=== PATIENT | female | born 2000 | race Caucasian/White ===

== ENCOUNTER 2021-09-18 05:51 | Emergency (ER) | payer SELFPAY ==
[~2021-09-18] VITALS: Ht 172.7 cm; Wt 68.1 kg
[2021-09-18 06:10] VITALS: BP 136/74
[2021-09-18] MEDS ORDERED: SODIUM CHLORIDE 0.9% 1,000 ML IV ONE (06:30)
[2021-09-18] MEDS ORDERED: DIPHENHYDRAMINE 25MG CAPSULE PO ONE (06:30)
[2021-09-18 07:01] LABS: BASOPHILS % 0.1 % (0.0-2.0); HEMOGLOBIN. 13.5 g/dL (12.0-16.0); LYMPHOCYTES % 32.1 % (20.0-50.0); MEAN CORPUSCULAR HEMOGLOBIN 30.2 pg (28.0-32.0); MEAN PLATELET VOLUME 8.6 fl (7.4-10.4); MONOCYTES % 12.2 % (2.0-8.0); NEUTROPHILS % 55.6 % (40.0-76.0); PLATELET 191 x1000/uL (130-400); RED BLOOD CELL COUNT 4.48 mill/uL (4.2-5.4); RED CELL DISTRIBUTION WIDTH 12.6 % (11.6-14.6)
[2021-09-18 07:08] LABS: CHLORIDE 106 mEq/L (98-107)
[2021-09-18 07:15] LABS: B-HCG QUANTITATIVE < 1 mIU/mL (<3)
[2021-09-18 07:21] LABS: CLARITY URINE CLEAR (CLEAR); COLOR URINE YELLOW (YELLOW); KETONES URINE 1+ (NEGATIVE); LEUKOCYTE ESTERASE URINE NEGATIVE (NEGATIVE); NITRITE URINE NEGATIVE (NEGATIVE); OCCULT BLOOD URINE NEGATIVE (NEGATIVE); PH URINE 6.5 (4.5-8.0); PROTEIN URINE NEGATIVE (NEGATIVE); SPECIFIC GRAVITY URINE 1.004 (1.005-1.030); UROBILINOGEN URINE 0.2 E.U./dL (0.2-1.0)
[2021-09-18 07:39] LABS: *AMPHETAMINES SCREEN URINE NEGATIVE (NEGATIVE); *BARBITURATES SCREEN URINE NEGATIVE (NEGATIVE); *BENZODIAZEPINES SCREEN URINE NEGATIVE (NEGATIVE); *COCAINE SCREEN URINE NEGATIVE (NEGATIVE); METHADONE URINE SCREEN NEGATIVE (NEGATIVE); OPIATES URINE SCREEN NEGATIVE (NEGATIVE); PHENCYCLIDINE URINE SCREEN NEGATIVE (NEGATIVE)
[2021-09-18 08:00] LABS: CANNABINOID URINE SCREEN PRESUMTIVE POSITIVE (NEGATIVE)
[2021-09-18 08:24] LABS: ETHANOL BLOOD < 10 mg/dL
== END 2021-09-18 09:08 | disposition home or self-care (01) ==
LOC: ER 05:51
DX: R21 Rash and other nonspecific skin eruption (principal)
CPT/HCPCS: 36415; 80053; 80305; 80307; 80320; 80329; 81003; 84702; 85025; 93005; 96360; 96361; 99284; J7030; Q0163; G0480